=== PATIENT | male | born 1970 ===

== ENCOUNTER 2016-08-04 02:25 | Emergency (ER) | payer SELFPAY ==
[2016-08-04 02:45] VITALS: RESP 20
--- NOTE | 2016-08-04 02:53 | C.PDOC ---
History Of Present Illness Patient is a 46 year old male brought in to the ER by EMS for public intoxication. Patient is cooperative with hospital staff. Denies any physical complaints at this time. Time Seen by Provider: 08/04/16 02:48 Chief Complaint (Nursing): Substance Abuse History Per: Patient History/Exam Limitations: no limitations Onset/Duration Of Symptoms: Hrs Current Symptoms Are (Timing): Still Present Suicide/Self Injury Attempted (Context): None Modifying Factor(s): Alcohol Associated Symptoms: denies: Depression, Suicidal Thoughts, Suicidal Plan Recent travel outside of the [place]: No Past Medical History Reviewed: Historical Data, Nursing Documentation, Vital Signs Vital Signs: Last Vital Signs Temp 97.9 F 08/04/16 02:37 Pulse 86 08/04/16 02:37 Resp 20 08/04/16 02:37 BP 132/73 08/04/16 02:37 Pulse Ox 95 08/04/16 02:53 - Medical History PMH: No Chronic Diseases Surgical History: No Surg Hx Family History: States: Unknown Family Hx - Social History Hx Alcohol Use: No Hx Substance Use: No Review Of Systems Constitutional: Negative for: Fever, Chills Gastrointestinal: Negative for: Nausea, Vomiting, Diarrhea Neurological: Positive for: Other (ETOH intoxication) Physical Exam - Physical Exam Appears: Non-toxic, No Acute Distress, Other (ETOH on breath) Skin: Normal Color, Warm, Dry Head: Atraumatic, Normacephalic Oral Mucosa: Moist Chest: Symmetrical, No Tenderness Cardiovascular: Rhythm Regular, No Murmur Respiratory: Normal Breath Sounds, No Rales, No Rhonchi, No Wheezing Gastrointestinal/Abdominal: Soft, No Tenderness Neurological/Psych: Oriented x3, Normal Speech, Normal Cognition ED Course And Treatment O2 Sat by Pulse Oximetry: 95 (Room air) Pulse Ox Interpretation: Normal Reevaluation Time: 02:52 Reassessment Condition: Improved (stable gait) Medical Decision Making Medical Decision Making: public intox, stable gait now. Disposition Doctor Will See Patient In The: Office Counseled Patient/Family Regarding: Studies Performed, Diagnosis - Disposition Referrals: Alcoholics Anonymous [Outside] [facility] [Outside] [facility] [Outside] Disposition: HOME/ ROUTINE Disposition Time: 02:53 Condition: GOOD Additional Instructions: stop alcohol abuse Seek AA or counseling if you feel you need Instructions: Abuse of Alcohol (ED) - Clinical Impression Clinical Impression: Alcohol abuse - Scribe Statement The provider has reviewed the documentation as recorded by the Scribe Chet Huber All medical record entries made by the Meiribe were at my direction and personally dictated by me. I have reviewed the chart and agree that the record accurately reflects my personal performance of the history, physical exam, medical decision making, and the department course for this patient. I have also personally directed, reviewed, and agree with the discharge instructions and disposition.
[2016-08-04 05:14] VITALS: BP 128/72; PULSE 88; TEMP 98.1; O2SAT 97
== END 2016-08-04 05:11 | disposition home or self-care (01) ==
LOC: C.ER 02:25
DX: F10.120 Alcohol abuse with intoxication, uncomplicated (principal); Y90.9 Presence of alcohol in blood, level not specified